=== PATIENT | male | born 1960 | race Caucasian/White ===

== ENCOUNTER 2020-07-13 12:26 | Inpatient (IN) | payer OTHER, MEDICAID ==
[~2020-07-13] VITALS: Ht 188 cm; Wt 112.0 kg
--- NOTE | 2020-07-13 12:44 | NUR ---
PT ARRIVED BY AMBULANCE C/O MIDCHEST PAIN WITH SOB, STATES CP CURENTLY AT 0/10 BUT HAS INTERMITTENT SHARP 9/10 CP SINCE 0630 WHEN HE WOKE UP. ARRIVED ON 2L NC O2, STATES HX OF COPD AND INTERMITTENT HOME O2. PT ALERT AND ORIENTED. MONITOR APPLIED. REPORT GIVEN TO ANDER DON.
[2020-07-13] MEDS ORDERED: SODIUM CHLORIDE FLUSH 10ML SYR IVF ONE (13:00)
[2020-07-13 13:17] LABS: BASOPHILS % (AUTO) 1 % (0-1); EOSINOPHILS % (AUTO) 2 % (1-7); LYMPHOCYTES % (AUTO) 13 % (22-44); MEAN CORPUSCULAR HEMOGLOBIN 33.3 pg (27.5-34.5); MEAN CORPUSCULAR HGB CONC 33.5 g/dL (33.2-36.2); MEAN PLATELET VOLUME 8.2 fL (7.4-10.4); MONOCYTES % (AUTO) 10 % (2-9); NEUTROPHILS % (AUTO) 74 % (42-75); PLATELET COUNT 146 x10^3/uL (130-400); RED BLOOD COUNT 2.42 x10^6/uL (4.38-5.82); RED CELL DISTRIBUTION WIDTH 16.2 % (9.4-14.8)
[2020-07-13 13:28] LABS: MD NO
[2020-07-13 13:29] LABS: ALANINE AMINOTRANSFERASE 22 U/L (12-78); ALBUMIN 3.6 g/dL (3.4-5.0); ANION GAP 7 mmol/L (5-15); CALCIUM 8.2 mg/dL (8.5-10.1); CHLORIDE 103 mmol/L (98-107)
[2020-07-13 13:34] LABS: ALKALINE PHOSPHATASE 48 U/L (45-117); BILIRUBIN,TOTAL 0.5 mg/dL (0.2-1.0); TOTAL PROTEIN 6.7 g/dL (6.4-8.2); TROPONIN I 0.043 ng/mL (0.000-0.045)
--- NOTE | 2020-07-13 14:03 | NUR ---
patient asked for tv controls, got them. asked for blanket and ice chips, got both. asked to put his [employer] oil in his belongings bag, did that. asked for lights dimmed, done. in bed, rails up
[2020-07-13] MEDS ORDERED: CALCIUM CHLORIDE 10%, 10ML SYR ONE (14:21)
[2020-07-13] MEDS ORDERED: FUROSEMIDE 20 MG/2 ML ONE (14:21)
[2020-07-13] MEDS ORDERED: DEXTROSE 50%, 50ML SYRINGE ONE (14:22)
[2020-07-13] MEDS ORDERED: ALBUTEROL SULFATE 2.5MG/0.5ML ONE (14:22)
[2020-07-13] MEDS ORDERED: INSULIN SINGLE DOSE, ER ONE (14:25)
[2020-07-13] MEDS ORDERED: FUROSEMIDE 40 MG/4 ML IVPush ONE (14:30)
[2020-07-13] MEDS ORDERED: CALCIUM CHLORIDE 10%, 10ML SYR IVPush ONE (14:30)
[2020-07-13] MEDS ORDERED: DEXTROSE 50%, 50ML SYRINGE IVPush ONE (14:30)
[2020-07-13] MEDS ORDERED: INSULIN REGULAR 100 UNITS/ML, 3ML VIAL IVPush ONE (14:30)
[2020-07-13] MEDS ORDERED: ALBUTEROL 0.5%, 20ML NPPB ONE (14:30)
--- NOTE | 2020-07-13 14:44 | NUR ---
patient's iv from [employer] is not patent. removed. attempted to start an iv, patient tolerates poorly. 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 he screams loudly at any attempt to start an iv. will reassess.
--- NOTE | 2020-07-13 14:47 | NUR ---
patient refusing any blood draws, will let pa know.
--- NOTE | 2020-07-13 15:12 | NUR ---
PATIENT REFUSED LAB. REFUSING TO TAKE CLOTHES OFF. REFUSING SHOWER.
[2020-07-13] MEDS ORDERED: BISACODYL 10 MG SUPP PR PRN (15:30)
[2020-07-13] MEDS ORDERED: ONDANSETRON 2MG/ML, 2ML IVPush PRN (15:30)
[2020-07-13] MEDS ORDERED: ACETAMINOPHEN 325 MG TABLET PO PRN (15:30)
[2020-07-13] MEDS ORDERED: POLYETHYLENE GLYCOL 17 GM PACKET PO PRN (15:30)
[2020-07-13 16:15] LABS: TROPONIN I 0.038 ng/mL (0.000-0.045)
--- NOTE | 2020-07-13 16:36 | NUR ---
PATIENT HAD 450 URINE OUT
--- NOTE | 2020-07-13 16:44 | NUR ---
ordered diet tray
[2020-07-13] MEDS ORDERED: ALBUTEROL SULFATE 2.5 MG/3 ML NPPB PRN (17:00)
--- NOTE | 2020-07-13 17:08 | NUR ---
patient given renal diet tray. ate all. he gets up to void in urinal and is watching [employer].
[2020-07-13] MEDS: FUROSEMIDE 40 MG TABLET PO SCH (17:18)
--- NOTE | 2020-07-13 17:19 | NUR ---
patient just given lasix so did not give subsequent scheduled 17:00 dose. 40 mg given iv recently
[2020-07-13] MEDS ORDERED: HEPARIN 5,000 UNITS/ML, 1ML ONE (17:25)
[2020-07-13] MEDS ORDERED: CARVEDILOL 12.5 MG TABLET ONE (17:25)
[2020-07-13] MEDS: HEPARIN 5,000 UNITS/ML, 1ML SQ SCH (17:27)
[2020-07-13] MEDS: CARVEDILOL 25 MG TABLET PO SCH (17:27)
--- NOTE | 2020-07-13 17:40 | NUR ---
called for report, RN will call back
--- NOTE | 2020-07-13 17:54 | NUR ---
patient report to FLORENCIA Burkett
--- NOTE | 2020-07-13 17:57 | NUR ---
report to Madelaine, patient rtg. [id number].
[2020-07-13 20:09] VITALS: BP 174/87
[2020-07-13] MEDS: INSULIN LISPRO 100 UNITS/ML, PEN SQ-INSULIN SCH (21:00)
[2020-07-13] MEDS: GABAPENTIN 100 MG CAPSULE PO SCH (21:01)
[2020-07-13] MEDS: ATORVASTATIN 40 MG TABLET PO SCH (21:05)
[2020-07-13 22:31] LABS: TROPONIN I 0.043 ng/mL (0.000-0.045)
[2020-07-13] MEDS: ZOLPIDEM 5MG TABLET PO PRN (22:46)
[2020-07-14] MEDS: HEPARIN 5,000 UNITS/ML, 1ML SQ SCH ×3 (00:15→17:06)
[2020-07-14] MEDS: ZOLPIDEM 5MG TABLET PO PRN ×3 (00:15→21:24)
[2020-07-14 02:05] VITALS: BP 166/82
[2020-07-14] MEDS: PANTOPRAZOLE 40MG TABLET PO SCH (05:23)
[2020-07-14] MEDS: CARVEDILOL 25 MG TABLET PO SCH ×2 (05:23→17:03)
[2020-07-14 06:32] VITALS: BP 188/89
[2020-07-14 07:34] LABS: BASOPHILS % (AUTO) 1 % (0-1); EOSINOPHILS % (AUTO) 2 % (1-7); LYMPHOCYTES % (AUTO) 12 % (22-44); MEAN CORPUSCULAR HEMOGLOBIN 33.9 pg (27.5-34.5); MEAN CORPUSCULAR HGB CONC 33.9 g/dL (33.2-36.2); MEAN PLATELET VOLUME 8.2 fL (7.4-10.4); MONOCYTES % (AUTO) 9 % (2-9); NEUTROPHILS % (AUTO) 76 % (42-75); PLATELET COUNT 151 x10^3/uL (130-400); RED BLOOD COUNT 2.26 x10^6/uL (4.38-5.82); RED CELL DISTRIBUTION WIDTH 16.3 % (9.4-14.8)
[2020-07-14 07:44] LABS: CALCIUM 8.7 mg/dL (8.5-10.1); CHLORIDE 107 mmol/L (98-107)
[2020-07-14 07:59] LABS: ANION GAP 6 mmol/L (5-15); CREATININE 9.13 mg/dL (0.7-1.3)
[2020-07-14] MEDS: SEVELAMER CARBONATE 800MG TAB PO SCH ×3 (08:06→17:02)
[2020-07-14] MEDS: FUROSEMIDE 40 MG TABLET PO SCH ×2 (08:06→17:03)
[2020-07-14] MEDS: METOLAZONE 5 MG TABLET PO SCH (08:07)
[2020-07-14] MEDS: CHOLECALCIFEROL 5,000u TAB PO SCH (08:07)
[2020-07-14] MEDS: AMLODIPINE 10 MG TAB PO SCH (08:07)
[2020-07-14] MEDS: FAMOTIDINE 20 MG TABLET PO SCH (08:07)
[2020-07-14] MEDS: SENNA/DOCUSATE TABLET PO SCH (08:10)
[2020-07-14] MEDS: INSULIN LISPRO 100 UNITS/ML, PEN SQ-INSULIN SCH ×4 (08:10→20:43)
[2020-07-14] MEDS: TAMSULOSIN 0.4 MG CAP.ER.24H PO SCH (08:10)
[2020-07-14] MEDS ORDERED: FUROSEMIDE 40 MG/4 ML ONE (08:21)
[2020-07-14 09:00] LABS: ANISOCYTOSIS 1+; MD MORPH REVIEW ONLY; OVALOCYTES 1+
[2020-07-14] MEDS ORDERED: FUROSEMIDE 100 MG/10 ML IV ONE (09:00)
[2020-07-14] MEDS ORDERED: CLOPIDOGREL 75 MG TABLET PO SCH (09:00)
[2020-07-14 09:01] LABS: <PLATELET ESTIMATE> ADEQUATE; POLYCHROMASIA 1+
[2020-07-14 09:02] LABS: <PLT MORPHOLOGY> NORMAL PLT MORPH
[2020-07-14] MEDS: LOSARTAN 100 MG TAB PO SCH (10:12)
[2020-07-14] MEDS: TIOTROPIUM BROMIDE 18 MCG/INH INH SCH (10:16)
[2020-07-14 11:51] VITALS: BP 144/65
[2020-07-14 14:00] VITALS: BP 170/83
[2020-07-14] MEDS: methylPREDNISolone SOD SUCC 125 MG/2 ML IV SCH ×2 (17:02→23:46)
[2020-07-14 19:54] VITALS: BP 169/89
[2020-07-14] MEDS: GABAPENTIN 100 MG CAPSULE PO SCH (20:14)
[2020-07-14] MEDS: ATORVASTATIN 40 MG TABLET PO SCH (20:14)
[2020-07-15 00:20] VITALS: BP 188/89
[2020-07-15] MEDS: HEPARIN 5,000 UNITS/ML, 1ML SQ SCH ×3 (01:30→16:18)
[2020-07-15] MEDS: PANTOPRAZOLE 40MG TABLET PO SCH (06:09)
[2020-07-15] MEDS: CARVEDILOL 25 MG TABLET PO SCH ×2 (06:09→17:08)
[2020-07-15] MEDS: METOLAZONE 5 MG TABLET PO SCH (07:35)
[2020-07-15] MEDS: INSULIN LISPRO 100 UNITS/ML, PEN SQ-INSULIN SCH ×4 (07:35→21:21)
[2020-07-15 08:12] LABS: ANION GAP 10 mmol/L (5-15); CALCIUM 9.1 mg/dL (8.5-10.1); CHLORIDE 101 mmol/L (98-107)
[2020-07-15 08:18] LABS: BASOPHILS % (AUTO) 0 % (0-1); EOSINOPHILS % (AUTO) 0 % (1-7); LYMPHOCYTES % (AUTO) 4 % (22-44); MEAN CORPUSCULAR HEMOGLOBIN 33.8 pg (27.5-34.5); MEAN CORPUSCULAR HGB CONC 33.9 g/dL (33.2-36.2); MEAN PLATELET VOLUME 8.8 fL (7.4-10.4); MONOCYTES % (AUTO) 1 % (2-9); NEUTROPHILS % (AUTO) 95 % (42-75); PLATELET COUNT 140 x10^3/uL (130-400); RED BLOOD COUNT 2.22 x10^6/uL (4.38-5.82); RED CELL DISTRIBUTION WIDTH 15.8 % (9.4-14.8)
[2020-07-15 08:20] VITALS: BP 158/73
[2020-07-15] MEDS: SEVELAMER CARBONATE 800MG TAB PO SCH ×3 (08:21→17:09)
[2020-07-15] MEDS: AMLODIPINE 10 MG TAB PO SCH (08:21)
[2020-07-15] MEDS: TAMSULOSIN 0.4 MG CAP.ER.24H PO SCH (08:21)
[2020-07-15] MEDS: FUROSEMIDE 40 MG TABLET PO SCH ×2 (08:22→17:09)
[2020-07-15] MEDS: LOSARTAN 100 MG TAB PO SCH (08:22)
[2020-07-15] MEDS: SENNA/DOCUSATE TABLET PO SCH ×2 (08:22→08:25)
[2020-07-15] MEDS: CHOLECALCIFEROL 5,000u TAB PO SCH (08:23)
[2020-07-15] MEDS: methylPREDNISolone SOD SUCC 125 MG/2 ML IV SCH (08:23)
[2020-07-15] MEDS: TIOTROPIUM BROMIDE 18 MCG/INH INH SCH (08:23)
[2020-07-15] MEDS: FAMOTIDINE 20 MG TABLET PO SCH (08:23)
[2020-07-15 09:15] LABS: MD SCAN
[2020-07-15] MEDS ORDERED: ARANESP 60 MCG/ML **ESRD SQ SCH (12:00)
[2020-07-15] MEDS: DOXYCYCLINE 100MG TABLET PO SCH ×2 (12:50→21:22)
[2020-07-15 13:03] VITALS: BP 161/74
[2020-07-15 13:21] LABS: ANION GAP 10 mmol/L (5-15); CALCIUM 9.7 mg/dL (8.5-10.1); CHLORIDE 101 mmol/L (98-107); CREATININE 6.21 mg/dL (0.7-1.3)
[2020-07-15] MEDS ORDERED: ACETAMINOPHEN 500 MG TABLET PO PRN (18:00)
[2020-07-15] MEDS: ACETAMINOPHEN 500 MG TABLET PO PRN (18:50)
[2020-07-15 19:17] VITALS: BP 158/66
[2020-07-15] MEDS: GABAPENTIN 100 MG CAPSULE PO SCH (21:22)
[2020-07-15] MEDS: ATORVASTATIN 40 MG TABLET PO SCH (21:22)
[2020-07-15] MEDS: methylPREDNISolone SOD SUCC 40 MG/ML IV SCH (21:22)
[2020-07-15] MEDS: ZOLPIDEM 5MG TABLET PO PRN (21:22)
[2020-07-15] MEDS: MELATONIN 5 MG TABLET PO PRN (21:23)
[2020-07-16 01:00] VITALS: BP 142/75
[2020-07-16] MEDS: HEPARIN 5,000 UNITS/ML, 1ML SQ SCH ×4 (01:30→19:18)
[2020-07-16] MEDS: PANTOPRAZOLE 40MG TABLET PO SCH (05:44)
[2020-07-16] MEDS: CARVEDILOL 25 MG TABLET PO SCH ×2 (05:44→17:40)
[2020-07-16] MEDS ORDERED: TAMS-11 PO (06:22)
[2020-07-16] MEDS ORDERED: ASPI81TA45 PO (06:22)
[2020-07-16] MEDS ORDERED: TIOT18CA INH (06:22)
[2020-07-16] MEDS ORDERED: ALBU18HF INH (06:22)
[2020-07-16] MEDS ORDERED: HYDR-2995 PO (06:22)
[2020-07-16] MEDS ORDERED: CINA30TA2 PO (06:22)
[2020-07-16] MEDS ORDERED: METO-282 PO (06:22)
[2020-07-16] MEDS ORDERED: AMLO-150 PO (06:22)
[2020-07-16] MEDS ORDERED: AMLO-210 PO (06:22)
[2020-07-16] MEDS ORDERED: GABA-826 PO (06:22)
[2020-07-16] MEDS ORDERED: CHOL10003 PO (06:22)
[2020-07-16] MEDS ORDERED: CLOP75TA52 PO (06:22)
[2020-07-16] MEDS ORDERED: CARV25TA PO (06:22)
[2020-07-16] MEDS ORDERED: ACET-1600 PO (06:22)
[2020-07-16] MEDS ORDERED: LORA-247 PO (06:22)
[2020-07-16] MEDS ORDERED: PANT20TA2 PO (06:22)
[2020-07-16] MEDS ORDERED: FLUT9.9S NAS (06:22)
[2020-07-16] MEDS ORDERED: valtassa PO (06:22)
[2020-07-16] MEDS ORDERED: HYDR-3341 PO (06:22)
[2020-07-16] MEDS ORDERED: FOLI0.8T35 PO (06:22)
[2020-07-16] MEDS ORDERED: ATOR20TA86 PO (06:22)
[2020-07-16] MEDS ORDERED: SEVE800T8 PO (06:22)
[2020-07-16 06:32] LABS: ALANINE AMINOTRANSFERASE 17 U/L (12-78); ALBUMIN 3.6 g/dL (3.4-5.0); ANION GAP 9 mmol/L (5-15); CALCIUM 8.9 mg/dL (8.5-10.1); CHLORIDE 99 mmol/L (98-107)
[2020-07-16 06:33] LABS: BASOPHILS % (AUTO) 0 % (0-1); EOSINOPHILS % (AUTO) 0 % (1-7); LYMPHOCYTES % (AUTO) 4 % (22-44); MEAN CORPUSCULAR HEMOGLOBIN 33.3 pg (27.5-34.5); MEAN CORPUSCULAR HGB CONC 33.5 g/dL (33.2-36.2); MEAN PLATELET VOLUME 8.9 fL (7.4-10.4); MONOCYTES % (AUTO) 4 % (2-9); NEUTROPHILS % (AUTO) 92 % (42-75); PLATELET COUNT 150 x10^3/uL (130-400); RED BLOOD COUNT 2.29 x10^6/uL (4.38-5.82); RED CELL DISTRIBUTION WIDTH 16.4 % (9.4-14.8)
[2020-07-16 06:35] LABS: ALKALINE PHOSPHATASE 44 U/L (45-117); BILIRUBIN,TOTAL 0.4 mg/dL (0.2-1.0); CREATININE 9.83 mg/dL (0.7-1.3); TOTAL PROTEIN 6.8 g/dL (6.4-8.2)
[2020-07-16 06:41] LABS: MD NO
[2020-07-16 06:48] VITALS: BP 151/66
[2020-07-16] MEDS: DOXYCYCLINE 100MG TABLET PO SCH ×2 (07:57→21:04)
[2020-07-16] MEDS: SENNA/DOCUSATE TABLET PO SCH (07:58)
[2020-07-16] MEDS: FAMOTIDINE 20 MG TABLET PO SCH (07:58)
[2020-07-16] MEDS: FUROSEMIDE 40 MG TABLET PO SCH ×2 (07:58→17:40)
[2020-07-16] MEDS: METOLAZONE 5 MG TABLET PO SCH (07:58)
[2020-07-16] MEDS: CHOLECALCIFEROL 5,000u TAB PO SCH (07:59)
[2020-07-16] MEDS: LOSARTAN 100 MG TAB PO SCH (07:59)
[2020-07-16] MEDS: TIOTROPIUM BROMIDE 18 MCG/INH INH SCH (08:00)
[2020-07-16] MEDS ORDERED: CALCIUM GLUCONATE 4.6 MEQ/10 ML IVPush ONE (08:00)
[2020-07-16] MEDS ORDERED: INSULIN REGULAR 100 UNITS/ML, 3ML VIAL IVPush ONE (08:00)
[2020-07-16] MEDS: TAMSULOSIN 0.4 MG CAP.ER.24H PO SCH (08:00)
[2020-07-16] MEDS: AMLODIPINE 10 MG TAB PO SCH (08:00)
[2020-07-16] MEDS ORDERED: SODIUM BICARBONATE 1 MEQ/ML, 50ML VIAL IVPush ONE (08:00)
[2020-07-16] MEDS: methylPREDNISolone SOD SUCC 40 MG/ML IV SCH (08:00)
[2020-07-16] MEDS ORDERED: DEXTROSE 50%, 50ML SYRINGE IVPush ONE (08:00)
[2020-07-16] MEDS: INSULIN LISPRO 100 UNITS/ML, PEN SQ-INSULIN SCH ×4 (08:01→21:10)
[2020-07-16] MEDS: SEVELAMER CARBONATE 800MG TAB PO SCH ×3 (08:11→17:40)
[2020-07-16] MEDS ORDERED: SODIUM POLYSTYRENE SULFONATE ORAL SUSP PO SCH (09:00)
[2020-07-16] MEDS ORDERED: ISOSORBIDE MONONITRATE ER 60 MG TABLET PO SCH (09:00)
[2020-07-16] MEDS: INSULIN GLARGINE 100 UNITS/ML, PEN SQ-INSULIN SCH (10:17)
[2020-07-16 11:42] LABS: ANION GAP 12 mmol/L (5-15); CALCIUM 9.3 mg/dL (8.5-10.1); CHLORIDE 103 mmol/L (98-107)
[2020-07-16] MEDS: SODIUM POLYSTYRENE SULFONATE ORAL SUSP PO SCH ×2 (12:36→17:39)
[2020-07-16] MEDS ORDERED: CHLORHEXIDINE 15 ML UDC ONE (14:36)
[2020-07-16] MEDS ORDERED: FENTANYL PF 100 MCG/2ML ONE (14:46)
[2020-07-16] MEDS ORDERED: MIDAZOLAM 1 MG/ML, 2ML ONE (14:47)
[2020-07-16] MEDS ORDERED: CHLORHEXIDINE 15 ML UDC MM ONE (15:00)
[2020-07-16] MEDS ORDERED: BUPIVACAINE/PF 0.25% ONE (15:14)
[2020-07-16] MEDS ORDERED: HEPARIN 1,000 UNITS/ML, 10ML ONE (15:14)
[2020-07-16] MEDS ORDERED: EPINEPHRINE 1 MG/ML, 1ML ONE (15:14)
[2020-07-16] MEDS ORDERED: LABETALOL 5MG/ML, 20ML IV PRN (15:30)
[2020-07-16] MEDS ORDERED: DIAZEPAM 5 MG/ML, 2ML IVPush PRN (15:30)
[2020-07-16] MEDS ORDERED: hydrALAzine 20 MG/ML, 1ML IV PRN (15:30)
[2020-07-16] MEDS ORDERED: ONDANSETRON 2MG/ML, 2ML IVPush PRN (15:30)
[2020-07-16] MEDS ORDERED: ACETAMINOPHEN 325 MG TABLET PO PRN (15:30)
[2020-07-16] MEDS ORDERED: HYDROmorphone 1 MG/ML, 1ML INJ IVPush PRN (15:30)
[2020-07-16] MEDS ORDERED: FENTANYL PF 100 MCG/2ML IV PRN (15:30)
[2020-07-16] MEDS ORDERED: OXYcodone 5 MG/5 ML ORAL.SOL UDC PO PRN (15:30)
[2020-07-16] MEDS ORDERED: PROPOFOL 10 MG/ML, 20ML ONE (15:31)
[2020-07-16] MEDS ORDERED: ROCURONIUM 10MG/ML,5ML ONE (15:31)
[2020-07-16] MEDS ORDERED: LIDOCAINE-MPF 1%, 2ML ONE (15:31)
[2020-07-16] MEDS ORDERED: SUGAMMADEX 200 MG/2 ML IVPush ONE (15:31)
[2020-07-16] MEDS ORDERED: CEFAZOLIN 1,000 MG ONE (15:31)
[2020-07-16] MEDS ORDERED: ACETAMINOPHEN 650 MG/20.3 ML UDC ONE (16:35)
[2020-07-16 21:04] VITALS: BP 161/73
[2020-07-16] MEDS: GABAPENTIN 100 MG CAPSULE PO SCH (21:04)
[2020-07-16] MEDS: ATORVASTATIN 40 MG TABLET PO SCH (21:04)
[2020-07-16 21:43] LABS: CLOSTRIDIUM DIFFICILE ANTIGEN NEGATIVE; CLOSTRIDIUM DIFFICILE TOXIN NEGATIVE (Negative)
[2020-07-16] MEDS: ZOLPIDEM 5MG TABLET PO PRN ×2 (22:56→23:02)
[2020-07-16] MEDS: ACETAMINOPHEN 500 MG TABLET PO PRN (22:57)
[2020-07-16] MEDS: MELATONIN 5 MG TABLET PO PRN (23:02)
[2020-07-17 00:34] VITALS: BP 125/60
[2020-07-17] MEDS ORDERED: GUAIFENESIN/DM 200-20MG, 10ML UDC PO PRN (01:00)
[2020-07-17 04:30] VITALS: BP 149/67
[2020-07-17] MEDS: ACETAMINOPHEN 500 MG TABLET PO PRN ×3 (04:58→23:22)
[2020-07-17] MEDS: PANTOPRAZOLE 40MG TABLET PO SCH (04:58)
[2020-07-17] MEDS: CARVEDILOL 25 MG TABLET PO SCH ×2 (04:58→16:54)
[2020-07-17 07:15] VITALS: BP 143/68
[2020-07-17 07:36] LABS: BASOPHILS % (AUTO) 0 % (0-1); EOSINOPHILS % (AUTO) 0 % (1-7); LYMPHOCYTES % (AUTO) 11 % (22-44); MEAN CORPUSCULAR HEMOGLOBIN 33.7 pg (27.5-34.5); MEAN CORPUSCULAR HGB CONC 33.6 g/dL (33.2-36.2); MEAN PLATELET VOLUME 8.9 fL (7.4-10.4); MONOCYTES % (AUTO) 10 % (2-9); NEUTROPHILS % (AUTO) 79 % (42-75); PLATELET COUNT 152 x10^3/uL (130-400)
[2020-07-17 07:37] LABS: ALBUMIN 3.4 g/dL (3.4-5.0); ANION GAP 14 mmol/L (5-15); CHLORIDE 100 mmol/L (98-107)
[2020-07-17 07:40] LABS: MD NO
[2020-07-17 07:42] LABS: ALANINE AMINOTRANSFERASE 16 U/L (12-78); ALKALINE PHOSPHATASE 43 U/L (45-117); BILIRUBIN,TOTAL 0.4 mg/dL (0.2-1.0); TOTAL PROTEIN 6.2 g/dL (6.4-8.2)
[2020-07-17] MEDS: TIOTROPIUM BROMIDE 18 MCG/INH INH SCH (08:07)
[2020-07-17] MEDS: SODIUM POLYSTYRENE SULFONATE ORAL SUSP PO SCH ×3 (08:10→17:37)
[2020-07-17] MEDS: SENNA/DOCUSATE TABLET PO SCH (08:11)
[2020-07-17] MEDS: METOLAZONE 5 MG TABLET PO SCH (08:11)
[2020-07-17] MEDS: AMLODIPINE 10 MG TAB PO SCH (08:12)
[2020-07-17] MEDS: CHOLECALCIFEROL 5,000u TAB PO SCH (08:12)
[2020-07-17] MEDS: DOXYCYCLINE 100MG TABLET PO SCH ×2 (08:12→21:23)
[2020-07-17] MEDS: LOSARTAN 100 MG TAB PO SCH (08:12)
[2020-07-17] MEDS: FUROSEMIDE 40 MG TABLET PO SCH ×2 (08:12→16:54)
[2020-07-17] MEDS: SEVELAMER CARBONATE 800MG TAB PO SCH ×3 (08:12→16:54)
[2020-07-17] MEDS: ISOSORBIDE MONONITRATE ER 60 MG TABLET PO SCH (08:12)
[2020-07-17] MEDS: FAMOTIDINE 20 MG TABLET PO SCH (08:12)
[2020-07-17] MEDS: TAMSULOSIN 0.4 MG CAP.ER.24H PO SCH (08:12)
[2020-07-17] MEDS: INSULIN GLARGINE 100 UNITS/ML, PEN SQ-INSULIN SCH (08:15)
[2020-07-17] MEDS: INSULIN LISPRO 100 UNITS/ML, PEN SQ-INSULIN SCH ×4 (08:15→21:22)
[2020-07-17] MEDS: HEPARIN 5,000 UNITS/ML, 1ML SQ SCH (08:16)
[2020-07-17] MEDS: METHOCARBAMOL 750 MG TABLET PO PRN ×2 (09:06→18:15)
[2020-07-17] MEDS: OXYcodone IR 5MG TABLET PO PRN ×4 (09:07→23:20)
[2020-07-17 14:25] VITALS: BP 129/55
[2020-07-17 19:16] VITALS: BP 171/68
[2020-07-17] MEDS: GABAPENTIN 100 MG CAPSULE PO SCH (21:23)
[2020-07-17] MEDS: ATORVASTATIN 40 MG TABLET PO SCH (21:23)
[2020-07-17 23:17] VITALS: BP 168/62
[2020-07-17] MEDS: ZOLPIDEM 5MG TABLET PO PRN (23:19)
[2020-07-18] MEDS: METHOCARBAMOL 750 MG TABLET PO PRN ×2 (01:54→10:25)
[2020-07-18 02:17] VITALS: BP 168/65
[2020-07-18] MEDS: OXYcodone IR 5MG TABLET PO PRN ×2 (04:33→10:25)
[2020-07-18 06:06] VITALS: BP 167/71
[2020-07-18] MEDS: PANTOPRAZOLE 40MG TABLET PO SCH (06:07)
[2020-07-18] MEDS: CARVEDILOL 25 MG TABLET PO SCH (06:07)
[2020-07-18 06:08] LABS: BASOPHILS % (AUTO) 0 % (0-1); EOSINOPHILS % (AUTO) 1 % (1-7); LYMPHOCYTES % (AUTO) 14 % (22-44); MEAN CORPUSCULAR HEMOGLOBIN 33.5 pg (27.5-34.5); MEAN CORPUSCULAR HGB CONC 33.6 g/dL (33.2-36.2); MEAN PLATELET VOLUME 8.9 fL (7.4-10.4); MONOCYTES % (AUTO) 12 % (2-9); NEUTROPHILS % (AUTO) 73 % (42-75); PLATELET COUNT 148 x10^3/uL (130-400); RED CELL DISTRIBUTION WIDTH 16.3 % (9.4-14.8)
[2020-07-18 06:18] LABS: MD NO
[2020-07-18 06:26] LABS: ANION GAP 13 mmol/L (5-15); CALCIUM 7.9 mg/dL (8.5-10.1); CHLORIDE 103 mmol/L (98-107)
[2020-07-18 06:27] LABS: CREATININE 9.39 mg/dL (0.7-1.3)
[2020-07-18] MEDS: INSULIN LISPRO 100 UNITS/ML, PEN SQ-INSULIN SCH ×3 (06:29→16:00)
[2020-07-18 07:15] VITALS: BP 183/83
[2020-07-18] MEDS: SODIUM POLYSTYRENE SULFONATE ORAL SUSP PO SCH ×2 (08:00→11:45)
[2020-07-18] MEDS: SENNA/DOCUSATE TABLET PO SCH (08:13)
[2020-07-18] MEDS: INSULIN GLARGINE 100 UNITS/ML, PEN SQ-INSULIN SCH (08:24)
[2020-07-18] MEDS: FAMOTIDINE 20 MG TABLET PO SCH (08:25)
[2020-07-18] MEDS: FUROSEMIDE 40 MG TABLET PO SCH (08:26)
[2020-07-18] MEDS: AMLODIPINE 10 MG TAB PO SCH (08:26)
[2020-07-18] MEDS: TAMSULOSIN 0.4 MG CAP.ER.24H PO SCH (08:26)
[2020-07-18] MEDS: CHOLECALCIFEROL 5,000u TAB PO SCH (08:26)
[2020-07-18] MEDS: LOSARTAN 100 MG TAB PO SCH (08:26)
[2020-07-18] MEDS: ISOSORBIDE MONONITRATE ER 60 MG TABLET PO SCH (08:27)
[2020-07-18] MEDS: DOXYCYCLINE 100MG TABLET PO SCH (08:27)
[2020-07-18] MEDS: METOLAZONE 5 MG TABLET PO SCH (08:27)
[2020-07-18] MEDS: TIOTROPIUM BROMIDE 18 MCG/INH INH SCH (08:30)
[2020-07-18] MEDS: SEVELAMER CARBONATE 800MG TAB PO SCH ×2 (08:30→11:43)
[2020-07-18 12:35] VITALS: BP 151/65
[2020-07-18] MEDS ORDERED: FURO40TA6 PO (15:48)
[2020-07-18] MEDS ORDERED: DOXY100T PO (15:48)
[2020-07-18] MEDS ORDERED: ISOS60TA36 PO (15:48)
[2020-07-18] MEDS ORDERED: HYDR-3343 PO (15:48)
[2020-07-18] MEDS ORDERED: METO5TAB5 PO (15:48)
[2020-07-18] MEDS ORDERED: AMLO-211 PO (15:48)
== END 2020-07-18 17:19 | disposition home or self-care (01) | DRG 981 ==
LOC: ED 13:57 → EDIP 15:24 → 4WST 19:04 → 4NE 07-15 15:20
PROVIDERS: ADMIT Family Medicine; ATTEND Family Medicine
PROC: 5A1D70Z Performance of Urinary Filtration, Intermittent, Less than 6 Hours Per Day (ICD-10-PCS; 2020-07-13)
PROC: 5A1D70Z Performance of Urinary Filtration, Intermittent, Less than 6 Hours Per Day (ICD-10-PCS; 2020-07-15)
PROC: 5A1D70Z Performance of Urinary Filtration, Intermittent, Less than 6 Hours Per Day (ICD-10-PCS; 2020-07-16)
PROC: 0WHG43Z Insertion of Infusion Device into Peritoneal Cavity, Percutaneous Endoscopic Approach (ICD-10-PCS; principal; 2020-07-16 16:00)
PROC: 5A1D70Z Performance of Urinary Filtration, Intermittent, Less than 6 Hours Per Day (ICD-10-PCS; 2020-07-17)
DX: I13.2 Hypertensive heart and chronic kidney disease with heart failure and with stage 5 chronic kidney disease, or end stage renal disease (principal); N18.6 End stage renal disease; I50.21 Acute systolic (congestive) heart failure; J96.11 Chronic respiratory failure with hypoxia; J44.1 Chronic obstructive pulmonary disease with (acute) exacerbation; Z20.828 Contact with and (suspected) exposure to other viral communicable diseases; I25.110 Atherosclerotic heart disease of native coronary artery with unstable angina pectoris; I42.9 Cardiomyopathy, unspecified; E87.5 Hyperkalemia; D63.1 Anemia in chronic kidney disease; D75.89 Other specified diseases of blood and blood-forming organs; E11.22 Type 2 diabetes mellitus with diabetic chronic kidney disease; E11.65 Type 2 diabetes mellitus with hyperglycemia; E78.5 Hyperlipidemia, unspecified; I27.20 Pulmonary hypertension, unspecified; G47.00 Insomnia, unspecified; I77.819 Aortic ectasia, unspecified site; Z79.02 Long term (current) use of antithrombotics/antiplatelets; Z79.4 Long term (current) use of insulin; Z79.899 Other long term (current) drug therapy; Z87.891 Personal history of nicotine dependence; Z95.5 Presence of coronary angioplasty implant and graft; Z99.2 Dependence on renal dialysis; Z99.81 Dependence on supplemental oxygen; Z91.041 Radiographic dye allergy status; Z91.018 Allergy to other foods; Z95.818 Presence of other cardiac implants and grafts
CPT/HCPCS: 36415; 96374; 96375; 99291; J3490; 71045; 80048; 80053; 82306; 82962; 83735; 83880; 83970; 84100; 84443; 84484; 85025; 86705; 86706; 87324; 87340; 90935; 93005; 93306; G0378; J0171; J0690; J0882; J1644; J1815; J1940; J2250; J2405; J2704; J3010; C1750; J0610; J2920; J2930; J7512; U0003